=== PATIENT | female | born 1965 | race African-American/Black ===

== ENCOUNTER 2019-07-23 14:54 | Emergency (ER) | payer MEDICAID, OTHER ==
[~2019-07-23] VITALS: Ht 170.2 cm; Wt 84.1 kg
[~2019-07-23 14:54] MED LIST: PROZ10 PO
[2019-07-23 16:40] VITALS: BP 124/71
== END 2019-07-23 16:41 | disposition home or self-care (01) ==
LOC: EMS 14:56
DX: F11.10 Opioid abuse, uncomplicated (principal); F10.11 Alcohol abuse, in remission; F17.210 Nicotine dependence, cigarettes, uncomplicated
CPT/HCPCS: 99406

== ENCOUNTER 2021-02-28 09:05 | Emergency (ER) | payer MEDICAID ==
[~2021-02-28] VITALS: Ht 167.6 cm; Wt 81.8 kg
[~2021-02-28 09:05] MED LIST changes: +FLUO10CA24 PO; -PROZ10 PO
[2021-02-28 09:15] VITALS: BP 146/86
[2021-02-28] MEDS ORDERED: ACETAMINOPHEN 500 MG TABLET PO ONE (09:30)
== END 2021-02-28 11:33 | disposition home or self-care (01) ==
LOC: EMS 09:15
DX: S92.022A Displaced fracture of anterior process of left calcaneus, initial encounter for closed fracture (principal); F17.210 Nicotine dependence, cigarettes, uncomplicated; W01.0XXA Fall on same level from slipping, tripping and stumbling without subsequent striking against object, initial encounter; Y93.01 Activity, walking, marching and hiking; Y92.89 Other specified places as the place of occurrence of the external cause; Y99.8 Other external cause status
CPT/HCPCS: 29515; 99283

== ENCOUNTER 2021-08-04 13:13 | Emergency (ER) | payer MEDICAID ==
[~2021-08-04] VITALS: Ht 170.2 cm; Wt 90.9 kg
[2021-08-04] MEDS ORDERED: IBUP-2759 PO (13:24)
[2021-08-04] MEDS ORDERED: NAPR220C62 PO (13:24)
[2021-08-04 14:43] VITALS: BP 148/80
[2021-08-04] MEDS ORDERED: MORPHINE SULFATE 4 MG/ML SYRINGE IVP ONE (15:00)
[2021-08-04 15:07] LABS: EOSINOPHILS % (AUTO) 3.1 % (1.0-6.0); HEMOGLOBIN 13.2 g/dL (12.0-16.0); LYMPHOCYTES % (AUTO) 32.6 % (22.0-44.0); MEAN CORPUSCULAR HEMOGLOBIN 27.2 pg (26.0-34.0); MEAN CORPUSCULAR HGB CONC 32.9 G/dL (31.0-37.0); MEAN CORPUSCULAR VOLUME 83 fL (80-100); MONOCYTES # (AUTO) 0.6 K/uL (0.1-1.0); MONOCYTES % (AUTO) 6.2 % (2.0-9.0); NEUTROPHILS # (AUTO) 5.3 K/uL (1.8-7.7); NEUTROPHILS % (AUTO) 57.1 % (40.0-70.0); RED BLOOD CELL COUNT(AUTO) 4.84 MIL/uL (4.00-5.20)
[2021-08-04 15:22] LABS: ANION GAP 8 mmol/L (8-16); CALCIUM, TOTAL 10.1 mg/dL (8.8-10.5); CARBON DIOXIDE 31 mmol/L (22-29); CHLORIDE 103 mmol/L (98-107); CREATININE 0.91 mg/dL (0.60-1.30); GLOMERULAR FILTR. RATE CALC > 60 mL/min (>60); GLUCOSE,RANDOM 100 mg/dL (70-110); POTASSIUM 4.7 mmol/L (3.5-5.1); SODIUM SERUM 142 mmol/L (136-145); UREA NITROGEN, BLOOD 16 mg/dL (7-18)
[2021-08-04 15:25] LABS: PLATELET COUNT (AUTO) 195 K/uL (150-450)
[2021-08-04 15:31] LABS: ALANINE AMINOTRANSFERASE 24 U/L (12-78); ALBUMIN 4.2 g/dL (3.4-5.0); ALKALINE PHOSPHATASE 57 U/L (46-116); ASPARTATE AMINOTRANSFERASE 26 U/L (15-37); BILIRUBIN,TOTAL 0.4 mg/dL (0.1-1.0); LIPASE 181 U/L (73-393); TOTAL PROTEIN, SERUM 8.3 g/dL (6.4-8.2)
[2021-08-04] MEDS ORDERED: SODIUM CHLORIDE 0.9% 1,000 ML IV ONE (16:30)
[2021-08-04] MEDS ORDERED: ONDANSETRON HCL 4 MG/2 ML VIAL IVP ONE (16:30)
[2021-08-04] MEDS ORDERED: METOCLOPRAMIDE HCL 5 MG/ML 2 ML VIAL IVP ONE (17:30)
[2021-08-04 17:34] LABS: APPEARANCE,URINE SL CLOUDY (CLEAR); BILIRUBIN,URINE NEGATIVE (NEGATIVE); GLUCOSE, URINE (UA) NEGATIVE (NEGATIVE); KETONES,URINE NEGATIVE (NEGATIVE); LEUKOCYTE ESTERASE ,URINE SMALL (NEGATIVE); NITRATE,URINE NEGATIVE (NEGATIVE); OCCULT BLOOD,URINE TRACE (NEGATIVE); PROTEIN,URINE SEE CONFIRM (NEGATIVE); UROBILINOGEN,URINE 0.2 mg/dL (<=1.0)
[2021-08-04 17:40] LABS: BACTERIA,URINE Many /HPF (None Seen); RBC,URINE 0-2 /HPF (0-2); SULFOSALICYLIC ACID,URINE 3+ (Negative)
[2021-08-04 17:41] LABS: SQUAMOUS EPITHELIAL CELL,UR Moderate /LPF (None Seen)
[2021-08-04] MEDS ORDERED: CefTRIAXone 1 GM/DEXTROSE 50 ML IV ONE (18:00)
== END 2021-08-04 18:59 | disposition home or self-care (01) ==
LOC: EMS 13:18
DX: N39.0 Urinary tract infection, site not specified (principal); F17.210 Nicotine dependence, cigarettes, uncomplicated
CPT/HCPCS: 36415; 74176; 80053; 81001; 81002; 83690; 85025; 87086; 96361; 96365; 96375; 99284; J2270; J2405; J2765

== ENCOUNTER 2021-12-29 14:15 | Emergency (ER) | payer MEDICAID ==
[~2021-12-29 14:15] MED LIST changes: -FLUO10CA24 PO; +IBUP-2759 PO; +NAPR220C62 PO
[2021-12-29 14:57] VITALS: BP 124/87
[2021-12-29] MEDS ORDERED: VALA100026 PO (15:01)
[2021-12-29] MEDS ORDERED: BENZ5.1G TP (15:04)
== END 2021-12-29 15:12 | disposition home or self-care (01) ==
LOC: EMS 14:15
DX: L98.9 Disorder of the skin and subcutaneous tissue, unspecified (principal)
CPT/HCPCS: 99283; Z7502

== ENCOUNTER 2024-10-12 13:22 | Emergency (ER) | payer MEDICAID ==
[~2024-10-12] VITALS: Ht 167.6 cm; Wt 75.0 kg
[~2024-10-12 13:22] MED LIST changes: +BENZ5.1G TP; -IBUP-2759 PO; +IBUP-45 PO; +VALA100026 PO
[2024-10-12 13:31] VITALS: BP 151/88; PULSE 78; RESP 20; TEMP 98.6; O2SAT 100
== END 2024-10-12 15:13 | disposition left against medical advice (07) ==
LOC: EMS 13:24
DX: Z76.0 Encounter for issue of repeat prescription (principal); Z53.21 Procedure and treatment not carried out due to patient leaving prior to being seen by health care provider